=== PATIENT | male | born 1955 | race Caucasian/White ===

== ENCOUNTER 2019-12-06 08:41 | Day surgery (SDC) | payer MEDICARE ==
[~2019-12-06 08:41] MED LIST: ACETAMINOPHEN 1,000 MG/100 ML BTL IVPB ONE; CEFAZOLIN 2 Gram 2 GM/50 ML BAG IVPB ONE
[2019-12-06] MEDS ORDERED: SEVOFLURANE 250 ML INH ONE (08:42)
[2019-12-06] MEDS ORDERED: BUPIVACAINE LIPOSOME/PF 133MG/10ML VIAL IV ONE (08:42)
[2019-12-06] MEDS ORDERED: BUPIVACAINE 0.25% MPF 30ML VIAL IVP ONE (08:42)
[2019-12-06] MEDS ORDERED: PROPOFOL 10 MG/ML VIAL IV ONE (08:42)
[2019-12-06] MEDS ORDERED: DEXAMETHASONE 4 MG/ML 1ML VIAL IVP ONE ×2 (08:42)
[2019-12-06] MEDS ORDERED: LIDOCAINE 2% MDV (20MG/ML) 20ML VIAL IV ONE (08:42)
[2019-12-06] MEDS ORDERED: KETOROLAC 30 MG/ML VIAL IVP ONE (08:42)
[2019-12-06] MEDS ORDERED: EPHEDRINE SULFATE 50 MG/ML ML IV ONE (08:42)
[2019-12-06] MEDS ORDERED: ONDANSETRON HCL IV 4 MG/2 ML VIAL IVP ONE (08:42)
[2019-12-06] MEDS ORDERED: *PACU ONLY* KETAMINE HCL 10 MG/ML (20ML) VIAL IV ONE (08:42)
[2019-12-06] MEDS ORDERED: MIDAZOLAM HCL 2MG/2ML VIAL IV ONE (08:42)
[2019-12-06] MEDS ORDERED: RINGERS SOLUTION,LACTATED 1,000 ML IV ONE ×2 (09:50→12:40)
[2019-12-06] MEDS ORDERED: METHYLPREDNISOLONE 40MG/VIAL IU ONE (12:00)
[2019-12-06] MEDS ORDERED: BUPIVACAINE 0.5% W/EPI MPF 30 ML VIAL IU ONE (12:00)
[2019-12-06] MEDS ORDERED: MORPHINE SULFATE 10MG/1ML **1ML VIAL IU ONE (12:01)
--- NOTE | 2019-12-08 10:52 | Operative Note ---
DATE OF SURGERY: 12/06/2019 PREOPERATIVE DIAGNOSIS: Tear of the rotator cuff on the right. POSTOPERATIVE DIAGNOSES: 1. 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 2. Profound external impingement right shoulder. 3. Complex glenohumeral tear from 8- to 4-o'clock. 4. Advanced arthrosis right distal clavicle. OPERATION: 1. Repair of a chronically torn rotator cuff tear on the right, open. 2. Right shoulder arthroscopy with interarticular debridement. 3. Right shoulder open acromioplasty, CA ligament resection, subacromial bursectomy. 4. Right shoulder distal clavicle resection. STAFF SURGEON: Michael Jenkins MD ANESTHESIA: General. PREPARATION: Chloraprep. INDIVIDUAL CONSIDERATIONS: None. PROCEDURE: The patient was taken to the operating room, placed supine on the operating room table. He had a successful induction with general anesthetic. He was then placed in a semi-seated beach chair position. His right arm and shoulder were prepped and draped in the usual fashion. The patient had posterior portal identified for arthroscopy. Skin was infiltrated with 0.5% Marcaine with epinephrine prior. An 18-gauge spinal needle was easily placed in the joint, and the joint was inflated with normal saline. A stab wound was made, and a blunt-tipped trocar for the scope was placed in the joint and it was inflated with normal saline. The arthroscope was introduced. An anterior accessory portal was then made just inferior to the intact long head of the biceps tendon in a retrograde fashion with a Wissinger razia. The patient had an obvious tear of the supraspinatus tendon looking about 1 cm. The glenohumeral joint was normal. No loose bodies were seen in the pouch or either gutter. The long head was normal. The subscap was normal. He had a complex labral tear from about 8- to 4-o'clock and this was debrided with a shaver. After irrigation, portals were closed with miroslava. The patient had an anterior approach to the subacromial space and distal clavicle. Skin was again infiltrated with 0.5% Marcaine with epinephrine prior. An anterior deltoid interval was developed. Care was taken not to split the deltoid more than about 4 cm distal to the anterior tip of the acromion to prevent injury to the axillary nerve. Once in the subacromial space, there was a tremendous amount of bursitis and fluid. The deltoid was then taken subperiosteally off the anterior aspect of the acromion, over the top of the intact CA ligament, and off the anterior aspect of a highly degenerated distal clavicle. CA ligament was resected with a Bovie. Distal clavicle was resected with an oscillating saw taking about 1 cm. He had a downsloping acromion with large anterior spur. An anterior acromioplasty was performed taking about 1 cm most of this being spur and tapering towards posteromedially to include the spurs at the AC joint. The undersurface was smoothed off with a rasp. A very thickened bursa was resected. The patient had an obvious 1 to 1.5 cm tear of the rotator cuff. It was easily mobilized. I debrided to good bleeding tendon. I made a small trough with a amelia at the tuberosity, placed retention sutures in #1 Ethibond through the end of the tendon, and then placed those sutures to the base of the trough and then distally on the tuberosity. This essentially affected a near anatomic repair. I put the shoulder through a full range of motion to ensure no further impingement. After irrigation, the deltoid was reattached to the remaining acromion with multiple interrupted #2 Vicryl going directly through the bony acromion. The periosteal cuff of the distal clavicle was closed with running #2 Vicryl. Anterior deltoid interval was closed with running #1 Vicryl. Subcu was closed with running 2-0 plus Vicryl and skin was closed with miroslava. Then 15 mL of 0.5% Marcaine with epinephrine along with 10 mg of morphine was injected into the subacromial space throughout a sterile 18-gauge needle. A sterile bulky compressive dressing and sling were applied. The patient tolerated the procedure well. Needle and sponge counts were correct. Estimated blood loss was minimal. He was taken back to recovery in good condition. There were no complications. ERNA
== END 2019-12-06 14:15 | disposition home or self-care (01) ==
LOC: SUR 08:41
PROVIDERS: ATTEND Orthopaedic Surgery
DX: M75.101 Unspecified rotator cuff tear or rupture of right shoulder, not specified as traumatic (principal); S43.431A Superior glenoid labrum lesion of right shoulder, initial encounter; M75.41 Impingement syndrome of right shoulder; M19.011 Primary osteoarthritis, right shoulder; I10 Essential (primary) hypertension; E78.00 Pure hypercholesterolemia, unspecified; Z79.01 Long term (current) use of anticoagulants; I25.2 Old myocardial infarction; Z95.5 Presence of coronary angioplasty implant and graft
CPT/HCPCS: 23412; 23415; 23120; 01610; 36416; 82948; J1885; J2405; J0690; C9290; J2270; 76942; J1030; J7120